=== PATIENT | female | born 1985 | race Caucasian/White ===

== ENCOUNTER 2016-12-30 14:40 | Emergency (ER) | payer SELFPAY ==
--- NOTE | 2016-12-30 17:16 | EDPHY ---
H & P Smoking Status: Never smoked Time Seen by Provider: 12/30/16 16:01 HPI/ROS: CHIEF COMPLAINT: Neck pain after fall HISTORY OF PRESENT ILLNESS: 31-year-old female presents to the emergency department with right-sided neck pain after she fell last evening. She states that she slipped on some water and fell landing on her buttock and then she thinks that she may have twisted her neck. She was feeling okay last night and then this afternoon was having increasing pain in her neck especially when she would look up or rotate to the left or right. She denies headache. She did not hit her head or lose consciousness. Denies chest pain or difficulty breathing. Denies back pain. Denies abdominal pain. Denies vomiting. Denies paresthesias in her upper or lower extremities. Denies feelings of weakness in her upper lower extremities. REVIEW OF SYSTEMS: Constitutional: No fever, no chills. Eyes: No double or blurry vision. ENT: No sore throat. Respiratory: No cough, no shortness of breath. Cardiac: No chest pain. Gastrointestinal: No abdominal pain, vomiting or diarrhea. Genitourinary: No dysuria. Musculoskeletal: Neck pain as above. No back pain. Skin: No rashes. Neurological: No headache. (Svetlana Moreno) Past Medical/Surgical History: Negative (Svetlana Moreno) Social History: (Svetlana Moreno) Physical Exam: General Appearance: Alert, no distress. No visible signs of trauma to her head. Eyes: Pupils equal and round. Extraocular motions are all intact. ENT: Mouth: Mucous membranes moist. Respiratory: No wheezing, rhonchi, or rales, lungs are clear to auscultation. Cardiovascular: Regular rate and rhythm. Gastrointestinal: Abdomen is soft and nontender, no masses, no rebound or guarding, bowel sounds normal. Neurological: Alert and oriented x 3, cranial nerves II through XII grossly intact Skin: Warm and dry, no rashes. Musculoskeletal: Nontender to palpate along the cervical, thoracic or lumbar spine. Pain with palpation especially to the right lateral aspect of the cervical spine. No palpable crepitus or other bony abnormality. She is able to fully flex her neck however has limited extension. She also has pain with rotation to the left and right as well as laterally bending her neck to the left and right. Extremities: Full range of motion and no peripheral edema. Normal and equal strength for the upper extremities bilaterally. Psychiatric: Patient is oriented X 3, there is no agitation. (Svetlana Moreno) Constitutional: Initial Vital Signs Temperature (C) 36.8 C 12/30/16 15:16 Heart Rate 76 12/30/16 15:16 Respiratory Rate 16 12/30/16 15:16 Blood Pressure 140/88 H 12/30/16 15:16 O2 Sat (%) 98 12/30/16 15:16 O2 Delivery Mode Room Air Allergies/Adverse Reactions: No Known Allergies Allergy (Unverified 12/30/16 15:16) Home Medications: Medication Instructions Recorded Cyclobenzaprine [Flexeril] 10 mg PO TIDPRN PRN #12 tab 12/30/16 Multivitamins 12/30/16 Medical Decision Making - Diagnostics Imaging: I viewed and interpreted images myself - Diagnostics Imaging Results: Cervical spine x-ray reveals no fractures. This is reviewed by myself the PAC system. Radiology interpretation to follow. (Svetlana Moreno) ED Course/Re-evaluation: 31-year-old female presents to the emergency department with right-sided neck pain after she fell last evening. The patient has a normal neurologic examination. Cervical spine x-rays were obtained which reveal no obvious fractures. Patient was given precautions. Patient has no cervical spine tenderness. She has pain rather with range of motion. Do not think further imaging studies are necessary. This was discussed with the patient who verbalized understanding and agreed (Svetlana Moreno) The patient was evaluated and managed by the physician anesthesiology physician assistant. I have reviewed this chart and I agree with the findings and plan of care as documented , as indicated by my signature. I am the secondary supervising physician. ( Ursula Desai) Differential Diagnosis: Including but not limited to fracture, cervical strain, muscular spasm, contusion, dissection (Svetlana Moreno) Departure - Departure Disposition: Home, Routine, Self-Care Clinical Impression: Cervical strain Condition: Good Instructions: Cervical Strain (ED) Additional Instructions: Ibuprofen 600 mg every 8 hours as needed for pain. Activity as tolerated. Flexeril as needed for muscular spasm. Caution drowsiness with this medication. Referrals: Suman Angel MD [Medical Doctor] - 5-7 days, call for appt. (Neurosurgeon on- call) KRYSTAL CAVAZOS [Other] - 5-7 days, call for appt. Prescriptions: Cyclobenzaprine [Flexeril] 10 mg PO TIDPRN PRN #12 tab PRN Reason: Spasms
[2016-12-30 17:54] VITALS: BP 136/78; PULSE 74; RESP 18; TEMP 99; O2SAT 97
== END 2016-12-30 17:54 | disposition home or self-care (01) ==
DX: S16.1XXA Strain of muscle, fascia and tendon at neck level, initial encounter (principal); W01.0XXA Fall on same level from slipping, tripping and stumbling without subsequent striking against object, initial encounter; Y99.8 Other external cause status; Y93.89 Activity, other specified